=== PATIENT | female | born 1980 | race Caucasian/White ===

== ENCOUNTER 2020-04-05 18:07 | Inpatient (IN) ==
[2020-04-05] MEDS ORDERED: Isovue-370 500 ML BOTTLE IVP ONE (18:38)
[2020-04-05 18:51] LABS: Basophils % 0.5 %; Eosinophils # 0.3 K/mcL (0.0-0.6); Eosinophils % 4.9 %; Hematocrit 34.9 % (35.3-44.9); Hemoglobin 12.1 g/dL (11.5-15.4); Immature Granulocytes % 0.2 % (0-4); Lymphocytes # 1.8 K/mcL (0.6-4.6); Lymphocytes % 31.5 %; Mean Corpuscular HGB Conc 34.7 g/dL (31.6-35.5); Mean Corpuscular Hemoglobin 30.6 pg (28.0-33.3); Mean Corpuscular Volume 88.4 fL (83.0-100.0); Mean Platelet Volume 11.4 fL (9.4-12.4); Monocytes # 0.5 K/mcL (0.0-1.3); Monocytes % 8.6 %; Neutrophils # 3.1 K/mcL (1.6-8.9); Platelet Count 249 K/mcL (140-400); Red Blood Count 3.95 M/mcL (3.82-4.97); Red Cell Distribution Width 13.1 % (11.5-14.5); Segmented Neutrophils % 54.3 %; White Blood Count 5.7 K/mcL (4.3-11.1)
[2020-04-05 18:52] LABS: Bilirubin,Urine Negative (Negative); Blood,Urine Large (Negative); Budding Yeast,Urine Many per hpf (None Seen); Calcium Oxalate Crystals,Urine Present; Clarity,Urine Ex.Turbid (Clear); Color,Urine Light-Orange (Yellow); Glucose,Urine (UA) Normal (Normal); Ketones,Urine Negative (Negative); Leukocyte Esterase,Urine Negative (Negative); Mucus,Urine Few per lpf (None-Few); Nitrite,Urine Negative (Negative); PH,Urine 5.5 pH Units (5.0-8.0); Protein,Urine 100 mg/dL (Neg-Trace); RBC,Urine TNTC per hpf (0-3); Specific Gravity,Urine > 1.030 (1.010-1.025); Squamous Epithelial Cell,Urine Few per hpf (None-Few); Urobilinogen,Urine Normal (Normal)
[2020-04-05 19:09] LABS: Acetaminophen < 10 mcg/mL (10-20); BUN/Creatinine Ratio 12 (6-26); Blood Urea Nitrogen 11 mg/dL (6-20); Calcium 9.1 mg/dL (8.6-10.3); Carbon Dioxide 18 mEq/L (23-29); Chloride 108 mEq/L (98-107); Ethanol < 10 mg/dL (Less than 10); Glucose 100 mg/dL (70-105); Osmolality,Calculated 277 (280-300); Potassium 3.9 mEq/L (3.5-5.1); Salicylate < 2.5 mg/dL (15.0-30.0); Sodium 134 mEq/L (136-145); eGFR For African Americans > 60 (> 60); eGFR For Non-African Americans > 60 (> 60)
[2020-04-05 20:00] LABS: Amphetamine Screen,Urine Positive ng/mL (Cutoff=1000); Barbiturate Screen,Urine Negative ng/mL (Cutoff=200); Benzodiazepines Screen,Urine Negative ng/mL (Cutoff=200); Cannabinoid Screen,Urine Positive ng/mL (Cutoff = 50); Cocaine Screen,Urine Negative ng/mL (Cutoff= 300); Opiate Screen,Urine Negative ng/mL (Cutoff=300); Phencyclidine Screen,Urine Negative ng/mL (Cutoff=25)
[2020-04-05] MEDS ORDERED: Nicotine 21 MG PATCH.TD24 TD ONE (20:00)
[2020-04-06] MEDS ORDERED: MOM Conc 10 ML UD.LIQ PO PRN (06:51)
[2020-04-06] MEDS ORDERED: haloperidoL 5 MG TABLET PO PRN (06:51)
[2020-04-06] MEDS ORDERED: *HR* LORazepam 1 MG TABLET PO PRN (06:51)
[2020-04-06] MEDS ORDERED: traZODone 50 MG TABLET PO PRN (06:51)
[2020-04-06] MEDS ORDERED: Mag Hydrox/Al Hydrox/Simeth 30 ML UDC PO PRN (06:51)
[2020-04-06] MEDS ORDERED: *HR* LORazepam 2 MG/ML VIAL IM PRN (06:51)
[2020-04-06] MEDS ORDERED: Acetaminophen 325 MG TABLET PO PRN (06:51)
[2020-04-06] MEDS ORDERED: Haloperidol Lactate 5 MG/ML VIAL IM PRN (06:51)
[2020-04-06] MEDS: hydrOXYzine pamoate 25 MG CAPSULE PO PRN (09:07)
[2020-04-06] MEDS: Nicotine 21 MG PATCH.TD24 TD SCH (09:08)
[2020-04-06] MEDS: hydrOXYzine pamoate 25 MG CAPSULE PO SCH ×2 (15:59→21:14)
[2020-04-06] MEDS: traZODone 50 MG TABLET PO SCH (21:13)
[2020-04-06] MEDS: risperiDONE 1 MG TABLET PO SCH (21:13)
[2020-04-07] MEDS: hydrOXYzine pamoate 25 MG CAPSULE PO PRN (03:50)
[2020-04-07] MEDS: risperiDONE 1 MG TABLET PO SCH ×2 (08:57→20:40)
[2020-04-07] MEDS: hydrOXYzine pamoate 25 MG CAPSULE PO SCH ×3 (08:58→20:39)
[2020-04-07] MEDS: Nicotine 21 MG PATCH.TD24 TD SCH (09:28)
[2020-04-07] MEDS: traZODone 50 MG TABLET PO SCH (20:40)
[2020-04-08] MEDS: hydrOXYzine pamoate 25 MG CAPSULE PO PRN (03:46)
[2020-04-08] MEDS: risperiDONE 1 MG TABLET PO SCH (08:11)
[2020-04-08] MEDS: hydrOXYzine pamoate 25 MG CAPSULE PO SCH (08:11)
[2020-04-08] MEDS: Nicotine 21 MG PATCH.TD24 TD SCH (08:12)
[2020-04-08] MEDS ORDERED: FLU Vac QV 20-21 (6Month+)/PF 0.5 ML SYRINGE IM ONE (12:08)
[2020-04-08 12:36] VITALS: BP 102/60
== END 2020-04-08 15:10 | disposition home or self-care (01) | DRG 753 ==
LOC: EMEROOARM 18:07 → 1ANU 04-06 06:49
PROVIDERS: ADMIT Psychiatry & Neurology Psychiatry; ATTEND Psychiatry & Neurology Psychiatry